=== PATIENT | female | born 1995 | race Caucasian/White ===

== ENCOUNTER 2023-01-25 06:22 | Inpatient (IN) | payer MEDICAID, SELFPAY ==
[2023-01-25] VITALS (39 sets, daily range): BP systolic 120–145; BP diastolic 65–96; PULSE 70–110; RESP 16–17; TEMP 36.5–36.8; O2SAT 96–100; BMI 32.5
[2023-01-25] MEDS: LACTATED RINGERS 500 ML 999 ML IV (06:34)
--- NOTE | 2023-01-25 06:35 | HP.PCM.OB_ITS ---
HPI - General General Date of Admission: 01/25/23 HPI Narrative ESTELA RICH, is a 27 F who presents at 38w3d in active labor. Maternal Data Information DENISE Calculator Estimated Delivery Date Method Current WG Current Estimate 02/05/23 Manual 38w 3d PFSH PFSH Medical History (Updated 01/25/23 @ 07:45 by Moni Chavez CNM) Anxiety Gestational HTN History of pre-term labor Allergy/AdvReac Type Severity Reaction Status Date / Time No Known Allergies Allergy Verified 01/25/23 06:46 Surgical History (Updated 01/25/23 @ 06:42 by Mary Saha) History of surgery Social History Smoking Status: Never smoker History Elective abortions Hx Para 3 Spontaneous abortions Hx # Term Pregnancies Ectopic pregnancies Hx # Pregnancies Multiple births # of living children NST FHR Rate Baby A Baseline: 125 Variability:: Moderate Accelerations:: 15 x 15 Decelerations:: None FHR Category:: Category I Uterine Activity:: every 2 minutes stron ROS Constitutional Constitutional: Reports systems reviewed and no addt'l complaints, except as documented; Denies headache(s) Eyes Eyes: Denies acute decrease in peripheral vision, blurry vision or change in vision ENT HEENT: Reports systems reviewed and no addt'l complaints, except as documented Cardiovascular Cardiovascular: Denies chest pain or dizziness Respiratory/Chest Respiratory/Chest: Denies cough, dyspnea, dyspnea on exertion, shortness of breath at rest or shortness of breath with exertion Gastrointestinal Gastrointestinal: Denies abdominal pain, diarrhea, nausea or vomiting Genitourinary Genitourinary: Denies abdominal discomfort Musculoskeletal Musculoskeletal: Denies limited range of motion Integumentary Integumentary: Reports systems reviewed and no addt'l complaints, except as documented Neurologic Neurologic: Reports systems reviewed and no addt'l complaints, except as documented Psychiatric Psychiatric: Reports systems reviewed and no addt'l complaints, except as documented Endocrine Endocrinology: Reports systems reviewed and no addt'l complaints, except as documented Hematologic/Lymphatic Hematologic/Lymphatic: Reports systems reviewed and no addt'l complaints, except as documented Allergic/Immunologic Allergic/Immunologic: Reports systems reviewed and no addt'l complaints, except as documented Vital Signs Vital Signs Vital Signs: 01/25/23 06:26 01/25/23 06:26 01/25/23 06:27 Pulse Rate 110 H 110 H Blood Pressure 138/83 H BP Systolic 138 BP Diastolic 83 Pulse Ox 01/25/23 06:27 Pulse Rate Blood Pressure BP Systolic BP Diastolic Pulse Ox 97 Physical Exam Const alert and oriented x3 General Appearance: cooperative Orientation / Consciousness: awake, oriented to person, oriented to place and oriented to time Exam Limitations: no limitations HEENT normocephalic Head and Scalp: normal to inspection, normocephalic and atraumatic Face and Sinus: normal facial exam Eyes General Eye: normal appearance of both eyes Neck full ROM Chest Chest: symmetrical chest wall rise Resp normal respiratory effort and normal air movement Auscultation: clear to auscultation bilaterally Cardio regular rate, regular rhythm, S1 normal heart sound, S2 normal heart sound, no murmurs, no rub, no gallops and no clicks GI normal to inspection, nondistended, normoactive bowel sounds and non-tender appearance of the vagina normal Bladder / Kidney Exam: no CVA tenderness Manual OB Exam: presentation cephalic, dilated 10, effaced 100, station +1 and other arom clear fluid Back/Spine normal ROM Extremity normal to inspection and full ROM Skin no rashes or lesions noted Neuro oriented x3, CN's II-XII intact bilaterally and moves all extremities Sensorium / Orientation: awake, alert and oriented to person Motor Exam: clonus absent Deep Tendon Reflexes: Rt Patellar (L4): 2+ and Lt Patellar (L4): 2+ Labs Labs Labs: Blood Type Pending Antibody Screen Pending Hct 35.1 % (37-47) L Hgb 10.5 g/dL (12.0-15.0) L Syphilis Total Ab Pending Assessment & Plan (1) Active labor at term: PLAN: Plan 1) Admit to labor and delivery 2) Routine labs 3) GBS positive and prophylaxis ordered 4) Planning unmedicated 5) [facility] and notified of patient status
[2023-01-25 06:52] LABS: Absolute Lymphocyte Count 2.25 X10^3/uL (0.83-4.51); Absolute Neutrophil Count 7.3 X10^3/uL (2.0-7.7); Basophil# 0.03 X10^3/uL; Basophil% 0.3 % (0-1); Eosinophil# 0.09 X10^3/uL; Eosinophils% 0.8 % (0-5); Hematocrit 35.1 % (37-47); Hemoglobin 10.5 g/dL (12.0-15.0); Lymphocyte # 2.25 X10^3/ul (0.83-4.51); Lymphocyte % 20.9 % (19-41); Mean Corp Hgb Conc 29.9 g/dL (32-36); Mean Corpuscular Hgb 24.1 pg (27.0-32.0); Mean Corpuscular Volume 80.5 fL (81-99); Mean Platelet Vol. 10.4 fl (6.2-12.0); Monocyte# 1.01 X10^3/uL; Monocyte% 9.4 % (0-10); NRBC Flagged by Analyzer 0 % (0-5); Neutrophil % 67.6 % (47-70); Platelet Count 315 K/mm3 (150-450); RBC Distribution Width CV 15.4 % (11.6-14.6); RBC Distribution Width SD 44.4 fl (35.1-43.9); Red Blood Count 4.36 M/mm3 (4.2-5.4); White Blood Count 10.8 K/mm3 (4.4-11.0)
[2023-01-25] MEDS: Oxytocin 15 Units/NS 250ml 15 UNITS/250 ML IV.SOLN 83 UNITS IV (07:01)
[2023-01-25] MEDS: Oxytocin 10 UNITS/ML Vial IM (07:12)
--- NOTE | 2023-01-25 07:40 | EX.PCM.OBRPT ---
Maternal Data Information DENISE Calculator Estimated Delivery Date Method Current WG Current Estimate 02/05/23 Manual 38w 3d Vaginal Delivery Maternal Presentation Maternal Presentation: Active Labor Operative Information Date of Procedure: 01/25/23 Pre-Operative Diagnosis: active labor Post-Operative Diagnosis: Surgery / Procedure Performed: Spontaneous Vaginal Delivery Type of Anesthesia: None Estimated Blood Loss: 350 ml Time of Delivery: 07:01 Findings Description of Procedure: Progressed to complete with urge to push. Unmedicated. of viable female over intact perineum. APGARS 7,9 respectively. Infant head delivered with body immediately forthcoming. CAN x 1, delivered through. Placed on maternal abdomen, strong cry. Mouth and nares suctioned for secretions. Pitocin started for active 3rd stage management. Cord doubly clamped and cut by FOB after pulsations ceased, delayed cord clamping. Placenta delivered intact via ezekiel, 3 vessel cord intact. Perineum inspected and intact. Fundus firm and hemostasis achieved. EBL 350ml. Mom and baby stable, planning to breastfeed. Family bonding well. notified of delivery. Presentation: Vertex Amniotic Membrane Rupture Type: Artificial Amniotic Fluid Description: Clear Placental Delivery Description: Expressed Placenta Disposition: [facility] Cord Vessel Description: 3 Vessels Cord Entanglement: Around neck x 1, loose Nuchal Cord Compression: Without compression A Gender: Female (1 minute): 7 (5 minute): 9 Delayed Cord Clamping: Yes Post Vaginal Delivery Medications Given After Delivery: IV Pitocin Episiotomy Description: None Laceration: None Complication Complications: None
[2023-01-25 08:51] LABS: Syphilis Antibodies Non-reactive
[2023-01-25] MEDS: 0.9% Saline Lock 10 ML Syringe IV (09:57)
--- NOTE | 2023-01-25 12:04 | NURSING ---
patient states she was fully able to empty bladder but missed hat
[2023-01-25] MEDS: Venlafaxine XR 37.5 MG Capsule PO (16:37)
--- NOTE | 2023-01-25 17:21 | CASEMGMT ---
Sw met with mother of baby (MOBGilberto Batista) at bedside. Sw acknowledging social work consult submitted due to mental health, anxiety on effexor. Sw does not have any concerns regarding MOB and mental health at this time. Sw to complete full social work assessment at later time. Ken Oquendo, ACOUSTICAL MATERIAL WORKER, PIN DRAFTER
[2023-01-25] MEDS: Acetaminophen 500 MG Tablet 1000 MG PO (23:36)
[2023-01-26 04:41] VITALS: BP 116/77; PULSE 71; RESP 15; TEMP 36.4; O2SAT 100
[2023-01-26 08:19] VITALS: BP 112/79; PULSE 72; RESP 18; TEMP 36.2; O2SAT 97
[2023-01-26] MEDS: Venlafaxine XR 37.5 MG Capsule PO (10:02)
--- NOTE | 2023-01-26 10:08 | PCM.PN.OB ---
Subjective Subjective Doing well per patient and nursing staff. Ambulating and taking PO without difficulty. Voiding and passing flatus. Pain controlled. , services for assistance. Denies headache, visual changes, chest pain, shortness of breath, leg pain or increased bleeding. Lochia normal. Objective Data Objective Data Vital Signs: Vital Signs Temp Pulse Resp BP Pulse Ox O2 Del Method 97.2 F L 72 18 112/79 97 Room Air 01/26/23 08:19 01/26/23 08:19 01/26/23 08:19 01/26/23 08:19 01/26/23 08:19 01/26/23 08:19 Oxygen Delivery Method Room Air Weight: 202 lb Body Mass Index (BMI) 32.5 Intake & Output: Intake and Output for Last 24 Hours 01/24/23 01/25/23 01/26/23 23:59 23:59 23:59 Intake Total 345.45 / 345.45 Output Total 850 / 850 Balance -504.55 / -504.55 Lab / Micro Data 01/25/23 06:30 Labs: Laboratory Results - last 24 hr 01/25/23 06:30: Antibody Screen NEGATIVE 01/25/23 10:05: Screen NEGATIVE, Baby's Blood Type O POSITIVE, Baby's EMMY NEGATIVE ROS Constitutional Constitutional: Reports systems reviewed and no addt'l complaints, except as documented; Denies headache(s) Eyes Eyes: Denies acute decrease in peripheral vision, blurry vision or change in vision ENT HEENT: Reports systems reviewed and no addt'l complaints, except as documented Cardiovascular Cardiovascular: Denies chest pain or dizziness Respiratory/Chest Respiratory/Chest: Denies cough, dyspnea, dyspnea on exertion, shortness of breath at rest or shortness of breath with exertion Gastrointestinal Gastrointestinal: Denies abdominal pain, diarrhea, nausea or vomiting Genitourinary Genitourinary: Denies abdominal discomfort Musculoskeletal Musculoskeletal: Denies limited range of motion Integumentary Integumentary: Reports systems reviewed and no addt'l complaints, except as documented Neurologic Neurologic: Reports systems reviewed and no addt'l complaints, except as documented Psychiatric Psychiatric: Reports systems reviewed and no addt'l complaints, except as documented Endocrine Endocrinology: Reports systems reviewed and no addt'l complaints, except as documented Hematologic/Lymphatic Hematologic/Lymphatic: Reports systems reviewed and no addt'l complaints, except as documented Allergic/Immunologic Allergic/Immunologic: Reports systems reviewed and no addt'l complaints, except as documented Physical Exam Const alert and oriented x3 General Appearance: cooperative Orientation / Consciousness: awake, oriented to person, oriented to place and oriented to time Exam Limitations: no limitations HEENT normocephalic Head and Scalp: normal to inspection, normocephalic and atraumatic Face and Sinus: normal facial exam Eyes General Eye: normal appearance of both eyes Neck full ROM Chest Chest: symmetrical chest wall rise Resp normal respiratory effort and normal air movement Auscultation: clear to auscultation bilaterally Cardio regular rate, regular rhythm, S1 normal heart sound, S2 normal heart sound, no murmurs, no rub, no gallops and no clicks GI normal to inspection, nondistended, normoactive bowel sounds and non-tender appearance of the vagina normal Bladder / Kidney Exam: no CVA tenderness Back/Spine normal ROM Extremity normal to inspection and full ROM Skin no rashes or lesions noted Neuro oriented x3, CN's II-XII intact bilaterally and moves all extremities Sensorium / Orientation: awake, alert and oriented to person Motor Exam: clonus absent Deep Tendon Reflexes: Rt Patellar (L4): 2+ and Lt Patellar (L4): 2+ Assessment & Plan (1) Vaginal delivery: (2) History of gestational hypertension: PLAN: Plan 1) Routine PP care 2) BP mildly elevated last night, normal this am. Will D/C with BP monitoring due to history of gestational HTN. Preeclampsia signs reviewed. 3) I&O 4) Pain management 5) D/C home 6) Follow up in 1 week for BP check and 6 week for PP visit.
--- NOTE | 2023-01-26 10:13 | PCM.DC.SUM ---
Providers Date of Admission: 01/25/23 Primary Care Physician: Dinorah Primary Care Phys Reason For Visit: VAGINAL DELIVERY Diagnosis Discharge Diagnosis (1) Vaginal delivery: Status: Acute Code(s): O80 - Encounter for full-term uncomplicated delivery (2) History of gestational hypertension: Status: Acute Code(s): Z87.59 - Personal history of other complications of , childbirth and the puerperium Plan 1) Routine PP care 2) BP mildly elevated last night, normal this am. Will D/C with BP monitoring due to history of gestational HTN. Preeclampsia signs reviewed. 3) I&O 4) Pain management 5) D/C home 6) Follow up in 1 week for BP check and 6 week for PP visit. Weight / BMI Weight Weight: 202 lb Body Mass Index (BMI) 32.5 ABG / Lab / Microbiology Data 01/25/23 06:30 Laboratory: Laboratory Results - last 24 hr 01/25/23 06:30: Antibody Screen NEGATIVE 01/25/23 10:05: Screen NEGATIVE, Baby's Blood Type O POSITIVE, Baby's EMMY NEGATIVE Meaningful Use Info Meaningful Use Diagnoses (Choose all that apply): None applicable Discharge Plan Admission Admit Date/Time: 01/25/23 06:22 Primary Reason for Your Visit: vaginal delivery Attending Provider: Moni Chavez Primary Care Provider: Care Dinorah Mota Primary Discharge Orders/Prescriptions Referrals / Follow Up: Moni Chavez CNM [Med Staff - Adv Practice Prof] - (follow up in 1 week for blood pressure check. 6 week PP) Care Physician,Dinorah Primary [Primary Care Provider] - Disposition Disposition (needs filled in before D/C Order can be placed): Home, Self Care
[2023-01-26 14:00] VITALS: BP 121/85; PULSE 77; RESP 18; TEMP 36.4
--- NOTE | 2023-01-27 11:55 | CASEMGMT ---
Social Work Assessment Labor and Delivery Unit Patient Address:[address] [place] [address] Phone number: [phone] Date of Referral: 01/25/23 Time of Referral:? 1345 Referred By: Moni Chavez Date of Intervention: ??01/25/23 Time of Intervention:? 1600 Reason for Referral:? mental health, anxiety- on effexor History obtained from: medical records and mother of baby (DANYA- Wen)??? Household composition:Currently residing at home is DANYA, Father of baby (FOB- Paul Newell) and three other children (Jacob, 11 y/o), Sera (8 y/o) and Mercy (1 y/o) Patient's parent/guardian status: DANYA reports that parents are , they will be celebrating their 9 year wedding anniversary next month. DANYA states they met through mutual friends. Medical History: This is fourth and delivery for DANYA. DANYA received routine care with [facility]. DANYA did have gestational hypertension, otherwise uncomplicated . DANYA delivered baby, Maye Nelson, via vaginal delivery. Baby was born on 01/25/23 weighing 2915 grams, apgars were 7 and 9. Baby required some respiratory support following delivery but was then okay. Baby will be seen by Dr. Karen Thomas for Pediatrics. Educational Status: DANYA reports that her highest level of education is 11th grade. DANYA states that she is not sure about ERWIN highest grade level- he did not graduate. DANYA denies learning difficulties for either parent. 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 Infant Supplies: DANYA reports that parents have obtained all necessary baby items for baby. This includes car seat, safe sleep space, clothes, diapers and wipes. ?? Childcare/Caregiver(s):? DANYA reports that she is the primary caregiver to her children. When she is unable to care for them and needs a sexual assault counsellor she uses her friends, maternal grandpa, paternal grandma and paternal step dad. Transportation:?? No barriers to transportation at this time. Both parents have reliable means of transportation. Programs/Agencies Involved: ???[employer] insurance, DANYA reports she recently applied for food assistance and is waiting to hear back if they were approved or not. Children Services/Legal Issues:??? DANYA denies. No issues or concerns at this time that would warrant a referral. Behavioral Health Issues: ?? Mental Health History: MOB states that she has been diagnosed with anxiety. MOB states that it is mostly social anxiety resulting from being a /7 caregiver to a now family member. Sw discussed signs and symptoms of baby blues and depression. DANYA completed [place] Depression Screen. Her score was a 4. Sw discussed results and encouraged DANYA to consider getting connected to outpatient mental health supports during her period. DANYA expressed understanding and said it is something that she will consider. MOB states that she is slightly overwhelmed due to her youngest only being 1. ??? Substance Use History:?MOB denies substance use: historical and during Family History:??MOB denies Drug Screens: ??NO urine screens observed Family/Social Stressors:? MOB briefly reported that although parents did not consider themselves to be done having children following the of their last child, MOB did not anticipate having another baby exactly a year later. Support Systems: MOB states that they have a lot of family support. MOB also identifies FOB as a support person for herself. Depression/Shaken Baby/Safe Sleeping: Sw provided education and literature on depression. MOB reviewed literature and stated that she is feeling good at this time and is hopeful that she does not experience the blues/ depression. MOB states that she has decided to bottle feed this baby opposed to trying to breastfeed. MOB states that she felt it would be too much to try to do that while also trying to care for a one year old and two other children. Sw supported MOB with this decision. ? ASSESSMENT:?MOB delivered baby today. MOB was talkative, but slightly reserved during psychosocial assessment. MOB appeared to be appreciative of sw involvement and the support and education provided. PLAN:?MOB and baby were discharged to home on 01/26/23. ?No other services requested or indicated. Ken Oquendo, PHARMACY TEACHER, PERSONNEL SCHEDULER
== END 2023-01-26 16:45 | disposition home or self-care (01) | DRG 560 ==
LOC: WPOUT 06:22 → WP 06:22
PROVIDERS: Admitting Provider Advanced Practice Midwife; Visit Provider Advanced Practice Midwife
DX: O69.81X0 Labor and delivery complicated by cord around neck, without compression, not applicable or unspecified (principal); Z37.0 Single live birth; O26.23 Pregnancy care for patient with recurrent pregnancy loss, third trimester; R03.0 Elevated blood-pressure reading, without diagnosis of hypertension; Z3A.38 38 weeks gestation of pregnancy; Z87.51 Personal history of pre-term labor; Z87.59 Personal history of other complications of pregnancy, childbirth and the puerperium
CPT/HCPCS: 59025; 59050; 85025; 85461; 86780; 86850; 86900; 86901; 99221; J7120; A4216; G0378; J2790

== ENCOUNTER 2024-12-20 18:56 | Emergency (ER) | payer MEDICAID, SELFPAY ==
[2024-12-20 18:58] VITALS: BP 158/93; PULSE 101; RESP 16; TEMP 36.3; O2SAT 100; BMI 27.1
[2024-12-20 20:57] VITALS: BP 146/92; PULSE 100; RESP 15; O2SAT 100
[2024-12-20 21:23] LABS: Absolute Lymphocyte Count 2.63 X10^3/uL (0.83-4.51); Absolute Neutrophil Count 7.4 X10^3/uL (2.0-7.7); Basophil# 0.03 X10^3/uL; Basophil% 0.3 % (0-1); Eosinophil# 0.08 X10^3/uL; Eosinophils% 0.7 % (0-5); Hematocrit 42.1 % (37-47); Hemoglobin 14.1 g/dL (12.0-15.0); Lymphocyte # 2.63 X10^3/ul (0.83-4.51); Lymphocyte % 24.2 % (19-41); Mean Corp Hgb Conc 33.5 g/dL (32-36); Mean Corpuscular Volume 86.4 fL (81-99); Mean Platelet Vol. 10.1 fl (6.2-12.0); Monocyte% 6.4 % (0-10); NRBC Flagged by Analyzer 0 % (0-5); Neutrophil # 7.41 X10^3/uL (2.7-7.7); Neutrophil % 68.1 % (47-70); Platelet Count 287 K/mm3 (150-450); RBC Distribution Width CV 13.5 % (11.6-14.6); RBC Distribution Width SD 43.4 fl (35.1-43.9); Red Blood Count 4.87 M/mm3 (4.2-5.4); White Blood Count 10.9 K/mm3 (4.4-11.0)
[2024-12-20 21:35] VITALS: BP 145/77; BP 157/96; BP 158/89; PULSE 84; PULSE 88; PULSE 90
--- NOTE | 2024-12-20 22:26 | US_ITS ---
PROCEDURE: TRANSVAGINAL NON- 12/20/2024 REASON FOR EXAM: SPONTANEOUS MISCARRIAGE, ASSESS FOR RETAINED PRODU TECHNIQUE: Transvaginal pelvic ultrasound COMPARISON: None FINDINGS: Measurements: Uterus: 11 x 7.6 x 5.3 cm with a volume of 231 mL Endometrial Thickness: 2.1 cm Right Ovary: 2.9 x 2.1 x 2.1 cm with a volume of 6.9 mL. Left Ovary: 3.1 x 1.6 x 2.1 cm with a volume of 5.3 mL. Uterus: Normal size, myometrial echotexture, and contour. Endometrium: The endometrium is heterogeneous and thickened measuring 2.1 cm, no IUP is demonstrated. Right ovary: Normal size and echotexture. Left ovary: Normal size and echotexture. Other: No free fluid. US/Transvaginal Non- IMPRESSION: Thickened and heterogeneous endometrium. No IUP is demonstrated. Reading Location: [facility]
--- NOTE | 2024-12-20 22:48 | ED.VIS.FEGU ---
HPI HPI - Female History of Present Illness Chief Complaint: Vag Bld, Preg Detail of Chief Complaint: demise with pelvic cramping and heavy vaginal bleeding Informant: patient Pain Pain: Positive for Pelvic Pain and Vaginal Pain Onset: Today and Hours Context: Sudden Onset Timing: Continuous and Waxes and wanes Quality: Positive for Cramping Current Severity: Mild Maximum Severity: Severe Worsened by: - (Nothing) Relieved by: - (Nothing) Bleeding Issue: Positive for Vaginal bleeding and Passing clots; Negative for Passing tissue Onset: Today and Hours (2 pads per hour, onset 1730) Context: Sudden Onset Timing: Continuous Current Severity: Heavy Maximum Severity: Heavy Associated Symptoms Associated Symptoms: Positive for Missed Period; Negative for Dysuria, Frequency, Urgency or Hematuria Last known menstrual period: Patient scheduled for D&C [facility] this coming December 22 Test: Positive Sexually: Positive for Active Narrative Narrative: Patient is a 29-year-old who is scheduled for D&C for demise. By dates she was 15 weeks size was 13 weeks. She has O+ blood. She has [facility] the past at [facility]. Her OB is through the [facility]. She states she is nervous. She reports mild lightheadedness. She reports heavy bleeding with 2 pads per hour since onset. She did pass clots. She does not believe she passed the fetus. She denies back pain. She denies shoulder pain. Prior similar symptoms: No Recent Illness/Hospitalization: Yes [facility] Medical History History of pre-term labor Anxiety Allergy/AdvReac Type Severity Reaction Status Date / Time No Known Allergies Allergy Verified 12/20/24 18:57 Surgical History History of surgery Social History Smoking Status: Never smoker ROS ROS ED Constitutional Constitutional ED: Denies chills or fever(s) Cardiovascular Cardiovascular: Denies chest pain or palpitations Respiratory/Chest Respiratory/Chest: Denies cough, dyspnea or dyspnea on exertion Gastrointestinal Gastrointestinal: Reports abdominal pain and nausea; Denies vomiting Genitourinary Genitourinary ED: Denies dysuria, hematuria or urinary frequency Musculoskeletal Musculoskeletal: Denies arthralgias, myalgias or neck pain Integumentary Denies rash Hematologic/Lymphatic Hematologic/Lymphatic: Denies easy bleeding or easy bruising EXAM Physical Exam Const Vital Signs: 12/20/24 18:58 12/20/24 20:57 12/20/24 21:35 Temperature 97.3 F L Temperature Source Temporal Pulse Rate 101 H 100 Pulse Rate [Lying] 84 Pulse Rate [Sitting (for 1 minute prior to obtaining)] 88 Pulse Rate [Standing (for 1 minute prior to obtaining)] 90 Respiratory Rate 16 15 Blood Pressure 158/93 H 146/92 H Blood Pressure [Lying] 145/77 H Blood Pressure [Sitting (for 1 minute prior to obtaining)] 158/89 H Blood Pressure [Standing (for 1 minute prior to obtaining)] 157/96 H Blood Pressure Mean 114 110 Blood Pressure Mean [Lying] 99 Blood Pressure Mean [Sitting (for 1 minute prior to obtaining)] 112 Blood Pressure Mean [Standing (for 1 minute prior to obtaining)] 116 Pulse Ox 100 100 Oxygen Delivery Method Room Air Room Air Positive well nourished and well developed Constitutional Narrative: Vital signs noted. Orthostatic vital signs negative. Patient appears anxious. General Appearance ED: well developed; Negative for pallor HEENT Reports moist mucous membranes HEENT Narrative: Head is atraumatic normocephalic. Ears normal. Nares patent. Eyes PERRL and EOMs intact bilaterally General Eye ED: Negative for pale conjunctiva Neck no lymphadenopathy, supple and no JVD Resp normal respiratory effort and clear to auscultation bilaterally Cardio regular rhythm, S1 normal heart sound, no murmurs and no JVD Rate: tachycardic GI normal to inspection, nondistended, normoactive bowel sounds, soft to palpation, non-tender, non-distended and no masses Auscultation: normoactive bowel sounds Narrative: Patient is noted to have vaginal bleeding. Speculum exam reveals a gestational sac that appears to be intact. This was gently removed using forceps. The entire gestational sac and fetus was removed. Bleeding has essentially stopped. Bimanual exam reveals opened os. Uterus is slightly enlarged. Back/Spine no CVA tenderness Extremity normal to inspection and full ROM Neuro oriented x3, CN's II-XII intact bilaterally and no sensory deficits noted Sensorium / Orientation: alert Motor Exam: strength 5/5 throughout Psych Mood & Affect: anxious Skin no rashes or lesions noted and no wounds General Skin Exam: Negative for jaundice or pallor MDM MDM MDM Narrative Medical decision making narrative: Patient with complete versus incomplete AB. Since her is minimal bleeding at this time at best we will obtain ultrasound to determine if there are any retained products of conception/placenta. Products of conception were was sent to the lab for analysis. H&H was obtained to determine patient has anemia and also to assess platelet count. Coags were not obtained since she has no history of coagulopathy and no history of bruising easily and has no petechia of her lower extremity. Lab Data Lab results narrative: CBC is normal. Labs: Laboratory Results - last 24 hr 12/20/24 21:15 WBC 10.9 RBC 4.87 Hgb 14.1 Hct 42.1 MCV 86.4 MCH 29.0 MCHC 33.5 RDW Std Deviation 43.4 RDW Coeff of Amina 13.5 Plt Count 287 MPV 10.1 Immature Gran % (Auto) 0.300 Neut % (Auto) 68.1 Lymph % (Auto) 24.2 Stafford % (Auto) 6.4 Eos % (Auto) 0.7 Baso % (Auto) 0.3 Absolute Neuts (auto) 7.4 Absolute Lymphs (auto) 2.63 Nucleated RBC % 0 Radiography Diagnostic Testing: Clinical Impression(s) from Imaging Studies Transvaginal US 12/20/24 22:26 IMPRESSION: Thickened and heterogeneous endometrium. No IUP is demonstrated. Reading [facility] Discussion w/another healthcare provider: Silver Buffer (Dr. Chavez on for REROLLING MACHINE OPERATOR was paged by the service secretary. Spoke with Dr. Moni Chavez for [facility] REROLLING MACHINE OPERATOR.) Discharge Plan Triage Chief Complaint: Vag Bld, Preg ED Provider: Girish Fernandez Dx/Rx/DC Orders Clinical Impression: Spontaneous miscarriage, Elevated blood-pressure reading without diagnosis of hypertension Instructions: ED Hypertension, To Be Confirmed, ED Miscarriage Spontaneous Referrals: Moni Chavez CNM [Med Staff - Adv Practice Prof] - As soon as possible Activity Restrictions/Additional Instructions: Called the [facility] OB office tomorrow morning and they will help you contact the doctor who was scheduled to do a D&C. Print Language: Vincentian Disposition Disposition: Home, Self Care
[2024-12-21 00:39] VITALS: BP 138/79; PULSE 95; RESP 17; TEMP 36.4; O2SAT 100
--- NOTE | 2024-12-21 00:40 | ED.RN ---
See bereavement documentation.
== END 2024-12-21 00:41 | disposition home or self-care (01) ==
PROVIDERS: Emergency Provider Emergency Medicine; Visit Provider Emergency Medicine
DX: O03.9 Complete or unspecified spontaneous abortion without complication (principal); R03.0 Elevated blood-pressure reading, without diagnosis of hypertension
CPT/HCPCS: 76830; 85025; 99284; A4216